=== PATIENT | male | born 1970 | race Caucasian/White ===

== ENCOUNTER 2020-04-04 15:33 | Outpatient (REF) | payer OTHER, SELFPAY | END 2020-04-04 15:34 | disposition home or self-care (01) | LOC: HO.LAB 15:33 | PROVIDERS: PCP Internal Medicine; Visit Provider Internal Medicine | DX: Z20.828 Contact with and (suspected) exposure to other viral communicable diseases (principal) | CPT/HCPCS: C9803; U0003 ==

== ENCOUNTER 2022-04-14 07:25 | Day surgery (SDC) | payer OTHER, SELFPAY ==
--- NOTE | 2022-04-11 10:36 | HO.ANESPROP2 ---
Documented by User: Becky Infante NP 04/11/22 10:37 HPI - Anesthesia Eval Consult details Narrative: 51yo M for Colonoscopy [facility] Past Medical History Medical History Anxiety Elevated cholesterol Surgical History Surgical History Hx of adenoidectomy Social History Social History Patient Tobacco Use Status: Never used Tobacco Use of substances other than those prescribed or required for medical reasons: No Are you DNR?: No Advance Directives: No Advance Directives Information Provided: Yes Meds Allergies Allergy/AdvReac Type Severity Reaction Status Date / Time No Known Allergies Allergy Verified 04/14/22 07:47 Home Medications Medication Instructions Recorded Confirmed Last Taken Type sertraline 50 mg tablet 1 tab PO DAILY 04/11/22 04/11/22 Unknown History simvastatin 10 mg tablet 1 tab PO BEDTIME 04/11/22 04/11/22 Unknown History Exam Exam Date and Time: April 11, 2022 1036 Assessment and Plan Assessment Anesthesia Assessment: Chart Reviewed Documented by User: Usha Mariano MD 04/14/22 08:21 [facility] Past Medical History Medical History Anxiety Elevated cholesterol Family History Family history of problems with anesthesia: No Surgical History Surgical History Hx of adenoidectomy History of Problems with Anesthesia: No Social History Social History Patient Tobacco Use Status: Never used Tobacco Use of substances other than those prescribed or required for medical reasons: No Are you DNR?: No Advance Directives: No Advance Directives Information Provided: Yes Meds Allergies Allergy/AdvReac Type Severity Reaction Status Date / Time No Known Allergies Allergy Verified 04/14/22 07:47 Home Medications Medication Instructions Recorded Confirmed Last Taken Type sertraline 50 mg tablet 1 tab PO DAILY 04/11/22 04/11/22 Unknown History simvastatin 10 mg tablet 1 tab PO BEDTIME 04/11/22 04/11/22 Unknown History Exam Height,Weight and Vital Signs: Height 6 ft 4.5 in Weight 94.347 kg Vital Signs Temp Pulse Resp BP Pulse Ox O2 Del Method 04/14/22 07:48 97.1 F 68 15 125/79 98 Room Air Airway Mallampati Class: II TM Dist: >3cm Neck ROM: Full Loose/Missing/Broken Teeth: No (Denies broken or loose teeth) Heart: RRR Lungs: CTAB Assessment and Plan Final Anesthetic Review Family History of Problems with Anesthesia: No History of Problems with Anesthesia: No NPO: Yes ASA Class: II Final Preanesthetic Review: No Changes in Pt Med Stat, Meds/Allgs Chart Reviewed, Consent Obtained/Reviewed and Anes Risks/Benef Reviewed Patient Risk: Low Procedure Risk: Low Assessment/Block/Sedation in SS: Assess/Block/Sedation-SS Anesthetic Plan Anesthetic Plan: MAC: Disposition: Standard PACU
[2022-04-14 07:43] VITALS: BMI 25.0
[2022-04-14 07:48] VITALS: BP 125/79; PULSE 68; RESP 15; TEMP 36.2; O2SAT 98
[2022-04-14] MEDS: Lactated Ringers 1,000 ML 100 ML IVCONT (07:56)
[2022-04-14 09:15] VITALS: BP 95/59; PULSE 63; RESP 16; TEMP 36.4; O2SAT 97
--- NOTE | 2022-04-14 09:17 | P.BOP_ITS ---
Brief Operative Note Date of Service: 04/14/22 Pre-op diagnosis: Screening Post-op diagnosis: other (Diverticulosis) Procedure: Colonoscopy to the cecum Surgeon: Alan Fairchild Anesthesia: MAC Was an Cobol Mainframe Developer used for this Procedure?: No Estimated blood loss (mL): 0 Pathology: none sent Condition: stable Disposition: PACU
[2022-04-14 09:30] VITALS: BP 109/71; PULSE 57; RESP 16; TEMP 36.4; O2SAT 100
--- NOTE | 2022-04-14 09:44 | OP_ITS ---
SURGEON: Alan Fairchild MD INDICATIONS: The patient presents for evaluation of colorectal cancer screening. Full consent was obtained from him for this, including risks of bleeding and perforation. PREOPERATIVE DIAGNOSIS: Colorectal cancer screening. POSTOPERATIVE DIAGNOSIS: PROCEDURE PERFORMED: Colonoscopy to cecum. ESTIMATED BLOOD LOSS: COMPLICATIONS: ANESTHESIA: Medication used; monitored anesthesia care. ASSISTANTS: SPECIMENS: POSTOPERATIVE DIAGNOSES: Colorectal cancer screening, occasional sigmoid diverticulosis, small internal hemorrhoids. DESCRIPTION OF PROCEDURE: The patient was placed in the left lateral decubitus position. The digital rectal exam revealed no abnormalities. The Olympus video-pediatric colonoscope was entered into the rectum and advanced easily to the cecum. Once in the cecum, I did identify normal-appearing cecal pouch with appendiceal orifice and a normal-appearing ileocecal valve. The entire cecum and ileocecal valve appeared normal. The scope was slowly withdrawn assessing all mucosal surfaces carefully. Preparation was excellent. I did not visualize any sign of polyps, colitis, nor angiodysplasia. There were occasional diverticula in the sigmoid colon. In the rectum, the scope was retroflexed visualizing small internal hemorrhoids, but no other pathology. The rectal mucosa appeared normal. The scope was straightened and withdrawn from the patient. He tolerated the procedure well and was returned to recovery area in stable condition. IMPRESSION: 1. Occasional sigmoid diverticulosis. 2. Small internal hemorrhoids. PLAN: Given the negative exam and no family history, I would recommend a followup colonoscopy in 10 years for further screening. He will otherwise see me on a p.r.n. basis. Alan Fairchild MD RMW/HIMANSHUL / [phone]
== END 2022-04-14 10:14 | disposition home or self-care (01) ==
PROVIDERS: PCP Internal Medicine; Visit Provider Internal Medicine
PROC: 0DJD8ZZ Inspection of Lower Intestinal Tract, Via Natural or Artificial Opening Endoscopic (ICD-10-PCS; CPT 45378; principal; 2022-04-14 08:30)
DX: Z12.11 Encounter for screening for malignant neoplasm of colon (principal); K57.30 Diverticulosis of large intestine without perforation or abscess without bleeding; K64.8 Other hemorrhoids; E78.5 Hyperlipidemia, unspecified; F41.1 Generalized anxiety disorder; Z79.899 Other long term (current) drug therapy
CPT/HCPCS: 45378

== ENCOUNTER 2022-05-29 11:44 | Emergency (ER) | payer OTHER, SELFPAY ==
--- NOTE | ~2022-05-29 | XR_ITS ---
EXAMINATION: LEFT HAND/WRIST CLINICAL INFORMATION: Fall, pain. COMPARISON: None TECHNIQUE: 4 views. FINDINGS: There is an impacted transverse fracture distal radius with dorsal angulation and mild soft tissue swelling. No additional fracture seen. XR/XR hand wrist LT IMPRESSION: Impacted Colles fracture distal radius with mild dorsal angulation and soft tissue swelling.
--- NOTE | 2022-05-29 12:12 | ED.FALL ---
HPI - Fall General Chief Complaint: Extremity Problem Stated Complaint: fall 05/29/22 L wrist inj Time Seen by Provider: 05/29/22 12:54 Source: patient Mode of arrival: ambulatory Limitations: no limitations History of Present Illness HPI Narrative: 51-year-old male healthy here with complaints of left hand and wrist pain after a fall on the ice which occurred just prior to arrival. No head strike or loss of consciousness. Related Data Home Medications Medication Instructions Recorded Confirmed sertraline 50 mg tablet 1 tab PO DAILY 04/11/22 04/11/22 simvastatin 10 mg tablet 1 tab PO BEDTIME 04/11/22 04/11/22 Previous Rx's Medication Instructions Recorded ibuprofen 800 mg tablet 800 mg PO Q8H PRN pain #30 tabs 05/29/22 oxycodone 5 mg tablet 5 mg PO Q8H PRN pain #8 tabs 05/29/22 Allergies Allergy/AdvReac Type Severity Reaction Status Date / Time No Known Allergies Allergy Verified 04/14/22 07:47 Review of Systems Review of Systems: Yes all other systems are reviewed and are negative Constitutional: Constitutional: Reports no additional constitutional complaints, Denies body ache(s), Denies chills, Denies fever(s), Denies headache(s) and Denies weakness Eyes: Eyes: Reports no additional eye complaints and Denies change in vision ENT: Reports system reviewed and no additional complaints, except as documented, Denies dizziness, Denies headache(s), Denies nasal congestion, Denies nasal discharge and Denies neck pain Cardiovascular: Cardiovascular: Reports no additional cardiovascular complaints, Denies chest pain, Denies leg edema and Denies dyspnea Respiratory: Respiratory: Reports no additional respiratory complaints, Denies cough and Denies dyspnea Gastrointestinal: Gastrointestinal: Reports no additional gastrointestinal complaints, Denies abdominal pain, Denies diarrhea, Denies nausea and Denies vomiting Genitourinary: Genitourinary: Denies urinary incontinence Musculoskeletal: Musculoskeletal: Reports no additional musculoskeletal complaints, Denies back pain, Reports arthralgias, Reports joint swelling, Reports limited range of motion, Denies neck pain, Denies numbness and Denies tingling Integumentary/Breasts: Skin/Breast: Reports system reviewed and no additional complaints, except as docu and Denies rash Neurologic: Reports system reviewed and no additional complaints, except as documented, Denies dizziness, Denies headache(s), Denies numbness, Denies tingling and Denies weakness [facility] Past Medical History Attestation statement: The following information was validated with the patient. Source: old records reviewed and nursing notes reviewed Medical History Anxiety Elevated cholesterol Surgical History Hx of adenoidectomy Social History Social History Patient Tobacco Use Status: Never used Tobacco Advance Directives: No Advance Directives Information Provided: Yes Physical Exam Vital Signs: Vital Signs: Last Vital Signs Temp 97.2 F 05/29/22 12:13 Pulse 59 05/29/22 12:13 Resp 18 05/29/22 12:13 BP 129/77 05/29/22 12:13 Pulse Ox 99 05/29/22 12:13 O2 Del Method 05/29/22 12:13 BMI result Body Mass Index 26.5 Const: General: cooperative, healthy appearing, comfortable and no acute distress Orientation/consciousness: patient oriented x3 Limitations: no limitations HEENT: Head: Yes normal to inspection Ears: hearing grossly normal bilaterally Eyes: General: appearance normal, both eyes and all related structures Neck: Neck: Yes normal visual inspection Resp: Effort & Inspection: normal respiratory effort Cardio: Peripheral pulses: Peripheral pulses 2+ throughout Back/Spine/Pelvis: Thoracic/Lumbar Spine: thoracic and lumbar spine normal to inspection Skin: General skin exam: no rashes or lesions noted Neuro: General: patient oriented x3 Cognition (Neuro): normal cognition Gait exam (Neuro): Normal gait present Extrem: Other: Over the left wrist over the distal dorsal aspect there is swelling and tenderness. Patient is able to flex and extend the wrist. He does have pain with doing so. Neurovascularly intact distally. Palpable radial and ulnar pulses palpated Course Course Course Narrative: This is rapid medical exam. Deferred additional HPI, ROS, PE to primary provider. 51-year-old male healthy here with complaints of left hand and wrist pain after a fall on the ice which occurred just prior to arrival. No head strike or loss of consciousness. Patient with pain and swelling at the dorsal aspect of the left hand at the base. Will check x-rays. Patient [id number]. VSS Reevaluation(s) Reevaluation #1: 1315-x-ray of the left wrist shows a impacted distal radial fracture. Patient placed in sugar-tong splint and given sling for home. Reviewed rice. Reviewed orthopedic follow-up. Reviewed worrisome signs and symptoms of when to return to the emergency room. Comfortable plan for discharge home. Procedures Orthopedic Splinting/Casting Injury #1: Side: left Upper Extremity Injury Location: wrist Upper Extremity Immobilizer: sling/shoulder immobilizer and sugar tong splint Medical Decision Making Medical Decision Making MDM Narrative: 51-year-old male with mechanical fall here with left wrist pain and swelling with concern for fracture. Will check x-ray Differential Diagnosis Differential Diagnoses: The differential diagnosis associated with the presentation includes Fracture, contusion, sprain Independent Interpretation I performed an independent interpretation of an: Plain X-Ray Interpretation: Independent Reviewed x-ray which shows left impacted distal radial fracture Radiology Impression Discussion of test interpretation with radiology: I have reviewed the radiologist's reading. Radiologist Impression: Impacted Colles fracture distal radius with mild dorsal angulation and soft tissue swelling. Discharge Plan Discharge Clinical Impression: Distal radial fracture Patient Disposition: Home, Self-Care Instructions: Wrist Fracture in Adults (ED), Splint Care (ED) Additional Instructions: Rest, elevate Call orthopedics for follow-up Prescriptions: New ibuprofen 800 mg tablet 800 mg PO Q8H PRN (Reason: pain) Qty: 30 0RF oxycodone 5 mg tablet 5 mg PO Q8H PRN (Reason: pain) Qty: 8 0RF Rx Instructions: Partial Fill upon patient request. No Action simvastatin 10 mg tablet 1 tab PO BEDTIME sertraline 50 mg tablet 1 tab PO DAILY Referrals: [facility] [place] [facility] [Provider Group] - 1 week Interventions: ED Discharge Assessment Last Done: 05/29/22 13:13
[2022-05-29 12:13] VITALS: BP 129/77; PULSE 59; RESP 18; TEMP 36.2; O2SAT 99; BMI 26.5
== END 2022-05-29 13:30 | disposition home or self-care (01) ==
PROVIDERS: Emergency Provider Student in an Organized Health Care Education/Training Program; PCP Internal Medicine
DX: S52.532A Colles' fracture of left radius, initial encounter for closed fracture (principal); W00.0XXA Fall on same level due to ice and snow, initial encounter; Y93.9 Activity, unspecified; Y92.9 Unspecified place or not applicable; Y99.9 Unspecified external cause status
CPT/HCPCS: 29125; 73110; 73130; 99282; 99284

== ENCOUNTER 2022-06-04 12:31 | Outpatient (REF) | payer OTHER, SELFPAY ==
--- NOTE | ~2022-06-04 | XR_ITS ---
EXAMINATION: XR WRIST, LEFT CLINICAL INFORMATION: Pain in left wrist COMPARISON: 05/29/2022 TECHNIQUE: PA, lateral, and oblique views of the left wrist. FINDINGS: Again seen is an impacted transverse fracture of the distal radius with mild dorsal displacement and angulation. The appearances similar to the prior study 05/29/2022. No additional fracture seen. XR/XR wrist LT min 3V IMPRESSION: Unchanged distal radius fracture.
== END 2022-06-04 12:32 | disposition home or self-care (01) ==
LOC: HO.HOSX 12:31
PROVIDERS: Visit Provider Physician Assistant
DX: S52.502A Unspecified fracture of the lower end of left radius, initial encounter for closed fracture (principal)
CPT/HCPCS: 73110

== ENCOUNTER 2022-06-05 12:54 | Day surgery (SDC) | payer OTHER, SELFPAY ==
[2022-06-05] VITALS (8 sets, daily range): BP systolic 112–135; BP diastolic 65–77; PULSE 54–69; RESP 15–16; TEMP 36.1–36.6; O2SAT 96–100; BMI 26.2
--- NOTE | ~2022-06-05 | FL_ITS ---
EXAMINATION: XR FLUOROSCOPY WITH IMAGES CLINICAL INFORMATION: Distal radial fracture. Reduction. COMPARISON: Radiographs left wrist 06/04/2022 TECHNIQUE: Fluoroscopy Supervised By: Dr. Sushma Brush. Fluoroscopy Time: 23 seconds. Cumulative Dose: 0.781 mGy. DAP: 0.0472 Gycm2. Images: 3. FINDINGS: Transverse fracture distal radius is reduced with volar side plate and screws. Hardware is intact. Fracture fragments are in near-anatomic alignment. No dislocation. FL/FL guidance in OR IMPRESSION: Status post reduction distal radial fracture. Hardware intact. Near-anatomic alignment.
--- NOTE | 2022-06-05 13:20 | P.CONAN_ITS ---
HPI - Anesthesia Eval Consult details Narrative: 51 year old male for orif left arm PMFSH Active Problems Active Problems: All Active Problems (Updated 06/04/22 @ 16:08 by Jason Lopez) Distal radius fracture, left (Acute) Colles' fracture of left radius (Acute) Past Medical History Medical History Anxiety Elevated cholesterol Family History Family history of problems with anesthesia: No Surgical History Surgical History (Updated 06/05/22 @ 13:21 by Jud Graves RN) Hx of adenoidectomy Hx of colonoscopy History of Problems with Anesthesia: No Social History Social History (Updated 06/04/22 @ 15:12 by Yaron Caballero) Patient Tobacco Use Status: Never used Tobacco Use of substances other than those prescribed or required for medical reasons: No Are you DNR?: No Advance Directives: No Advance Directives Information Provided: Yes Current occupational status: employed 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 Meds Allergies Allergy/AdvReac Type Severity Reaction Status Date / Time No Known Allergies Allergy Verified 06/05/22 13:21 Active Medications: Current Medications Cefazolin Sodium/Dextrose (Ancef) 2 gm in 50 mls @ 100 mls/hr IV PREOP ONE Stop: 06/05/22 13:25 Home Medications Medication Instructions Recorded Confirmed Last Taken Type sertraline 50 mg tablet 1 tab PO DAILY 04/11/22 06/05/22 Unknown History simvastatin 10 mg tablet 1 tab PO BEDTIME 04/11/22 06/05/22 Unknown History Exam Exam Date and Time: June 05, 2022 1320 Height,Weight and Vital Signs: Height 6 ft 4 in Weight 97.522 kg Last Vital Signs Temp 97.2 F 06/05/22 13:13 Pulse 54 06/05/22 13:13 Resp 15 06/05/22 13:13 BP 135/77 06/05/22 13:13 Pulse Ox 98 06/05/22 13:13 O2 Del Method 06/05/22 13:13 Assessment and Plan Assessment Anesthesia Assessment: Anesthesia Plan Discussed Final Anesthetic Review Family History of Problems with Anesthesia: No History of Problems with Anesthesia: No ASA Class: II Final Preanesthetic Review: No Changes in Pt Med Stat, Meds/Allgs Chart Reviewed, Consent Obtained/Reviewed and Anes Risks/Benef Reviewed Patient Risk: Low Anesthetic Plan Anesthetic Plan: GA, Regional Block and Agree w/ Assess. and Plan Disposition: Standard PACU
[2022-06-05] MEDS: Lactated Ringers 1,000 ML 80 ML IVCONT (13:43)
--- NOTE | 2022-06-05 14:17 | MHC.SHP ---
Pre-Procedural Eval Section A Date of Service: 06/05/22 The patient is an INPATIENT: No Changes since office visit: No Cold of Flu in the past 2 weeks, No New Medical Problems, No Changes in Medication and No Patient answered all questions The History & Physical has been completed within 30 days and I have reviewed it.: Yes Section B Chief Complaint: Colles' fracture of left radius, initial encounter Allergies: Allergies Allergy/AdvReac Type Severity Reaction Status Date / Time No Known Allergies Allergy Verified 06/05/22 13:21 Plan I have reviewed the history and physical and performed a pertinent physical examination on my patient. No changes have occurred unless specified. Time Spent With Patient Time: Total time managing care of this patient today ____ minutes.
--- NOTE | 2022-06-05 14:18 | P.OP_ITS ---
Operative Note Operative Note Date of Service: 06/05/22 Narrative: Operative Note Narrative: Preop diagnosis: 1. Left Distal radius fracture Postop diagnosis: Same Procedure: 1. Left Distal radius fracture open reduction internal fixation Surgeon: Sushma Brush MD Anesthesia: General anesthesia plus regional block Findings: left distal radius fracture Implants: A 3 hole Accu Med volar locking plate, with 5 X 2.3 mm locking pegs/screws, and 3 3.5 mm cortical screws Tourniquet time: 53 minutes EBL: 5.0 ml Specimen: None Drains: None Complications: None Disposition: Brought to the recovery room in stable condition Plan: Follow-up in 10-14 days for wound check, suture removal and postop radiographs The patient will be placed in a volar wrist splint. Encouraged no lifting of anything heavier than a cell phone. Please encourage active and passive range of motion of the digits. Follow-up at 4-5 weeks postop for repeat radiographs. Indications: The patient is a 51 year old man with a left distal radius fracture . The risks and benefits of operative treatment, including but not limited to risk of damage to blood vessels, nerves, tendons, infection, recurrence, persistent pain or numbness, incomplete resolution of preoperative symptoms, or need for further surgery were discussed with the patient and they wished to proceed with surgery. Procedure: Once consent was obtained patient was brought back to the operating suite and placed in the operating table in a supine position. A regional block was performed by the anesthesia team. Perioperative antibiotics and anesthesia was administered by the anesthesia team. A tourniquet was applied to the proximal aspect of the left upper extremity and the limb was prepped and draped in a standard surgical fashion. The limb was elevated exsanguinated with Esmarch bandage and the tourniquet inflated to 250 mm of mercury for a total tourniquet time of 53 minutes. The FluoroScan was used throughout the case to assess our reduction, and facilitate implant placement. A gentle closed reduction was 1st performed on the patient's left distal radius fracture. Was assessed radiographically before proceeding with the reduction internal fixation. I then made an 8 cm longitudinal incision over the distal aspect of the flexor carpi radialis tendon. The incision was made through the skin to the subcutaneous tissue using a 15. Blade. Then carefully dissected down to flexor carpi radialis tendon she tenotomy scissors. The FCR tendon sheath was then incised longitudinally using tenotomy scissors under direct visualization. The FCR tendon was then retracted ulnarly. I then made a longitudinal incision in the volar forearm fascia through the floor of FCR tendon sheath using tenotomy scissors under direct visualization. I identified the interval between the radial artery and the flexor tendons. This interval was developed further with my index finger, releasing some of the muscular fibers of the flexor pollicis longus. A dull weatlander retractor was then placed. I then created an ulnarly based flap of the pronator quadratus by releasing the radial and distal edges using a 15. Blade. A Alex elevator was used to elevate the pronator quadratus from the volar surface of the distal radius. This then revealed to us our distal radius fracture. An open reduction was then performed on our distal radius fracture. I then placed a short standard 3 hole Accu Med volar locking plate on the volar surface of the distal radius. I placed a single K-wire through the distal aspect of the plate and into the distal radius. This was assessed using fluor oscopic images. I was satisfied with the placement of our plate. I then placed 5x 2.3 mm locking screws/pegs in the distal aspect of the plate and distal radius by 1st drilling bicortically with a 1.8 mm drill bit, measuring with a depth gauge, and placing the appropriate length locking screws/pegs. The placement of our plate and screws was then assessed again using fluoroscopic images. The once satisfied with the placement of the volar locking plate and screws on the distal aspect of the distal radius, the plate was then reduced to the shaft of the radius. I then placed 3 3.5 mm cortical screws to the proximal aspect of the plate and into the shaft of the radius. This was done by 1st drilling bicortically with a 2.8 mm drill bit, measuring with a depth gauge, and placing the appropriate length screw. Final radiographs were then obtained. The DRUJ was assessed and found to be stable on exam. I was satisfied with our reduction and placement of all implants. At this point the wound was irrigated with normal saline. The pronator quadratus was reduced back over the volar locking plate using some 3-0 Vicryl suture material. The tourniquet was then deflated and hemostasis was obtained with a brief period of local pressure and bipolar monopolar electrocautery. The subcutaneous layer was then reapproximated using some 4-0 Vicryl suture, and the skin edges were reapproximated using some 5 0 Prolene suture. The wound was then infiltrated with some 0.5% plain ropivacaine postop pain control. A sterile dressing and a short dorsal splint allowing for active flexion and extension of the digits was applied. The patient appears to have tolerated the procedure well and with no complications. All digits were well vascularized conclusion of the case.
== END 2022-06-05 17:16 ==
LOC: HO.SSS 12:55
PROVIDERS: PCP Internal Medicine; Visit Provider Orthopaedic Surgery
PROC: (CPT 25607; principal; 2022-06-05 14:30)
DX: S52.532A Colles' fracture of left radius, initial encounter for closed fracture (principal); W03.XXXA Other fall on same level due to collision with another person, initial encounter; Y93.21 Activity, ice skating; Y92.330 Ice skating rink (indoor) (outdoor) as the place of occurrence of the external cause; Y99.8 Other external cause status; E78.00 Pure hypercholesterolemia, unspecified; F41.1 Generalized anxiety disorder; Z79.899 Other long term (current) drug therapy
CPT/HCPCS: 25607; C1713; C1769; J0690; J2250; J2370; J2405; J2795; J3010

== ENCOUNTER 2022-06-13 09:23 | Outpatient (REF) | payer OTHER, SELFPAY ==
--- NOTE | ~2022-06-13 | XR_ITS ---
EXAMINATION: XR WRIST, LEFT CLINICAL INFORMATION: Pain. COMPARISON: Radiograph of the left wrist 06/04/2022. TECHNIQUE: PA, lateral, and oblique views of the left wrist. FINDINGS: Interval placement of fixation plate with traversing screws along the distal radius with improved near anatomic alignment of a comminuted distal radial fracture. No interval injuries. No evidence of hardware failure. Mild degenerative arthritis of the first carpometacarpal joint and radiocarpal articulation. No unexpected foreign bodies. XR/XR wrist LT min 3V IMPRESSION: Status post ORIF of a distal radial fracture with improved near anatomic alignment. No evidence of hardware failure. No interval injury.
== END 2022-06-13 09:24 | disposition home or self-care (01) ==
LOC: HO.HOSX 09:23
PROVIDERS: Visit Provider Physician Assistant
DX: S52.532D Colles' fracture of left radius, subsequent encounter for closed fracture with routine healing (principal)
CPT/HCPCS: 73110

== ENCOUNTER 2022-07-10 12:27 | Outpatient (REF) | payer OTHER, SELFPAY ==
--- NOTE | ~2022-07-10 | XR_ITS ---
EXAMINATION: XR WRIST, LEFT CLINICAL INFORMATION: Pain COMPARISON: Previous x-ray most recent June 2022 TECHNIQUE: PA, lateral, and oblique views of the left wrist. FINDINGS: The nondisplaced transverse fracture of the distal radius appears unchanged. There is orthopedic hardware in the distal radius with plate and screws that appears unchanged. No other fracture. Normal joint spaces. Normal soft tissues. XR/XR wrist LT min 3V IMPRESSION: ORIF of left distal radius fracture. No change from recent exam.
== END 2022-07-10 12:28 | disposition home or self-care (01) ==
LOC: HO.HOSX 12:27
PROVIDERS: Visit Provider Physician Assistant
DX: S52.532D Colles' fracture of left radius, subsequent encounter for closed fracture with routine healing (principal)
CPT/HCPCS: 73110

== ENCOUNTER 2022-08-19 12:43 | Outpatient (REF) | payer OTHER, SELFPAY ==
--- NOTE | ~2022-08-19 | XR_ITS ---
EXAMINATION: XR WRIST, LEFT CLINICAL INFORMATION: Pain left wrist COMPARISON: None available. TECHNIQUE: PA, lateral, and oblique views of the left wrist. FINDINGS: There is an old healed fracture distal radius stabilized with volar plate and screws. There is no new acute fracture or dislocation. The joint spaces are maintained normal without bony erosive changes. The soft tissues are normal. XR/XR wrist LT min 3V IMPRESSION: Old healed fracture distal radius with volar plate and screws. No new acute fracture or dislocation seen.
== END 2022-08-19 12:44 | disposition home or self-care (01) ==
LOC: HO.HOSX 12:43
PROVIDERS: Visit Provider Orthopaedic Surgery
DX: M25.532 Pain in left wrist (principal)
CPT/HCPCS: 73110

== ENCOUNTER → 2022-08-20 09:32 | Outpatient (BNVA) | payer OTHER, SELFPAY | PROVIDERS: PCP Internal Medicine; Visit Provider Orthopaedic Surgery | DX: Z13.89 Encounter for screening for other disorder (principal) ==

== ENCOUNTER 2022-10-10 10:47 | Outpatient (REF) | payer OTHER, SELFPAY ==
[2022-10-10 13:13] LABS: MANUAL DIFF FLAG NO
[2022-10-10 13:17] LABS: Basophils Absolute Auto 0.1 X10*3/uL (0.0-0.2); Eosinophils Absolute Auto 0.2 X10*3/uL (0.0-0.4); Hematocrit 39.7 % (42.0-52.0); Hemoglobin 13.1 g/dl (14.0-18.0); Imm Gran Abs Auto 0.02 X10*3/uL (0.00-0.03); Imm Gran Pct Auto 0.4 % (0.0-0.4); Lymphocytes Absolute Auto 1.6 X10*3/uL (1.2-4.9); Lymphocytes Percent Auto 31.1 % (20-40); Mean Corpuscular Hemoglobin 27.9 pg (27.0-33.0); Mean Corpuscular Volume 84.6 fL (80.0-98.0); Mean Platelet Volume 9.6 fL (9.4-12.4); Monocytes Absolute Auto 0.5 X10*3/uL (0.1-1.2); Monocytes Percent Auto 9.7 % (2-11); Neutrophils Absolute Auto 2.7 x10*3/uL (2.0-8.3); Neutrophils Percent Auto 53.8 % (45-73); Platelet Count 233 X10*3/uL (160-400); Red Blood Count 4.69 X10*6/uL (4.60-5.80); White Blood Count 5.1 X10*3/uL (4.8-10.8)
[2022-10-10 13:45] LABS: Alanine Aminotransferase 20 U/L (0-40); Albumin Level 4.3 g/dL (3.5-5.0); Alkaline Phosphatase 57 U/L (39-117); Anion Gap 10 (12-20); Aspartate Amino Transferase 24 U/L (5-37); Blood Urea Nitrogen 18 mg/dL (9-16); Calcium 9.4 mg/dL (8.4-10.2); Carbon Dioxide 29 mmol/L (22-29); Chloride 105 mmol/L (96-108); Cholesterol 192 mg/dL; Estimated Glomerular Filt Rate > 60; Glucose Fasting 82 mg/dL (60-99); HDL Cholesterol 62 mg/dL; LDL Cholesterol Calculated 118 mg/dl; Potassium 4.3 mmol/L (3.3-5.1); Sodium 140 mmol/L (135-145); Total Protein 6.9 g/dL (6.5-8.0); Triglycerides 64 mg/dL
== END 2022-10-10 10:48 | disposition home or self-care (01) ==
LOC: HO.10HDL 10:47
PROVIDERS: Visit Provider Internal Medicine
DX: Z00.00 Encounter for general adult medical examination without abnormal findings (principal); Z12.5 Encounter for screening for malignant neoplasm of prostate
CPT/HCPCS: 36415; 80053; 80061; 84153; 85025

== ENCOUNTER 2023-10-16 10:26 | Outpatient (REF) | payer OTHER, SELFPAY ==
[2023-10-16 10:56] LABS: MANUAL DIFF FLAG NO
[2023-10-16 11:14] LABS: Basophils Absolute Auto 0.1 X10*3/uL (0.0-0.2); Basophils Percent Auto 0.8 % (0-2); Eosinophils Absolute Auto 0.1 X10*3/uL (0.0-0.4); Eosinophils Percent Auto 2.1 % (0-4); Hematocrit 40.9 % (42.0-52.0); Hemoglobin 13.5 g/dl (14.0-18.0); Imm Gran Abs Auto 0.01 X10*3/uL (0.00-0.03); Imm Gran Pct Auto 0.2 % (0.0-0.4); Lymphocytes Absolute Auto 1.6 X10*3/uL (1.2-4.9); Lymphocytes Percent Auto 25.8 % (20-40); Mean Corpuscular Hemoglobin 28.1 pg (27.0-33.0); Mean Platelet Volume 9.1 fL (9.4-12.4); Monocytes Absolute Auto 0.5 X10*3/uL (0.1-1.2); Monocytes Percent Auto 8.4 % (2-11); Neutrophils Percent Auto 62.7 % (45-73); Platelet Count 209 X10*3/uL (160-400); Red Blood Count 4.81 X10*6/uL (4.60-5.80); Red Cell Distribution Width 12.7 % (11.0-16.0); White Blood Count 6.3 X10*3/uL (4.8-10.8)
[2023-10-16 11:49] LABS: Alanine Aminotransferase 12 U/L (0-40); Albumin Level 4.4 g/dL (3.5-5.0); Alkaline Phosphatase 47 U/L (39-117); Anion Gap 14 (12-20); Aspartate Amino Transferase 21 U/L (5-37); Bilirubin Total 1.6 mg/dL (0.0-1.0); Blood Urea Nitrogen 24 mg/dL (9-16); Calcium 9.8 mg/dL (8.4-10.2); Carbon Dioxide 26 mmol/L (22-29); Chloride 105 mmol/L (96-108); Cholesterol 184 mg/dL (<200); Estimated Glomerular Filt Rate > 60; Glucose Fasting 84 mg/dL (60-99); HDL Cholesterol 69 mg/dL (>40); LDL Cholesterol Calculated 101 mg/dL (<100); Potassium 4.2 mmol/L (3.3-5.1); Sodium 141 mmol/L (135-145); Total Protein 7.4 g/dL (6.5-8.0); Triglycerides 70 mg/dL (<150)
[2023-10-16 12:12] LABS: Prostate Specific Antigen Scr 0.39 ng/mL (<0.05-4.0)
== END 2023-10-16 10:27 | disposition home or self-care (01) ==
LOC: HO.10HDL 10:26
PROVIDERS: Visit Provider Internal Medicine
DX: E78.00 Pure hypercholesterolemia, unspecified (principal); Z12.5 Encounter for screening for malignant neoplasm of prostate; Z80.42 Family history of malignant neoplasm of prostate
CPT/HCPCS: 36415; 80053; 80061; 84153; 85025

== ENCOUNTER → 2023-10-27 13:40 | Outpatient (RCR) | payer OTHER, SELFPAY ==
--- NOTE | 2022-07-18 11:02 | MHC.OT.EP ---
[address] [phone] Occupational Therapy Plan of Care Date of Evaluation: 07/18/22 Diagnosis: Left Colles Fx Pain Location: Pain free at rest Mild pain w/ light use Pain Score: 0 Pain Scale Used: Numeric (0 - 10) Aggravating Factors: General use, has been avoiding heavy use Alleviating Factors: None used Assessment: 51 yo right hand dominant male presents about 6 weeks s/p ORIF of left distal radius fracture. He is wearing prefab orthosis out of the house/driving, but otherwise has been out of the splint for light activities and sleeping. On assessment, his primary limitation is supination, also w/ decreased flex and extension. 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 Otherwise edema is minimal and pain is low. He is very motivated and I anticipate he will progress well through therapy program. Frequency and Duration: The patient will be seen 1-2x/wk for 4 weeks Short Term Goals: Gross grasp 45lb Pain free wrist w/ ADL and light IADL Forearm sup 55 Wrist flex 45 Wrist ext 50 Snf Goals: Gross grasp 60lb Forearm sup 70 Wrist flex 60 Wrist ext 60 Pt to report ease w/ moderate house work, walking dog, etc Pt to return to light sports activity (tossing baseball w/ son) Treatment Plan: Therapeutic Exercise Therapeutic Activity Home Exercise Program Patient Education Edema Control ADL Training Paraffin Fluidotherapy MHP Cold Packs Joint Mobilization Soft Tissue Mobilization Kinesiotaping Electronically Signed By: Raina Schreiber OTR/L CHT Please Sign and return to therapist. Thank you once again for your referral.
--- NOTE | 2022-08-22 07:44 | MHC.OT.DC ---
[address] [phone] F: [phone] Occupational Therapy Discharge Note Patient Name: Enrique Grover Provider: Jose A Rogers Diagnosis: Left Colles Fx Date of Surgery: 06/05/22 Date of Evaluation: 07/18/22 Date of Discharge: 08/20/22 Treatments to Date: 4 Discharge Status: Achieved Goals Improved Function Independent with HEP Discharge Summary: Enrique is about 11 weeks post-op left distal radius fx w/ ORIF. He continues to progress w/ range and strength, good follow through w/ HEP. No significant pain or functional limitations, limiting full activity still (not playing pick-up basketball). He feels confident in home program and self management, will d/c OT services at this time Electronically Signed By: Raina Schreiber OTR/Duglas CHT Reviewed/agree with student documentation: Therapist: Please Sign and return to therapist, thank you for your referral.
== END | disposition home or self-care (01) ==
LOC: HO.OT 07-18 09:45
PROVIDERS: Visit Provider Physician Assistant
DX: S52.532D Colles' fracture of left radius, subsequent encounter for closed fracture with routine healing (principal)
CPT/HCPCS: 97110; 97140; 97165; 97530

== ENCOUNTER 2024-10-14 11:25 | Outpatient (AMB) | payer OTHER, SELFPAY ==
--- NOTE | 2024-10-14 11:26 | A.OFFPC_ITS ---
Vital Signs 10/14/24 11:32 Height 6 ft 4.25 in Weight 218 lb BMI 26.4 BP 120/74 Blood Pressure Location Lt brachial Position Sitting Respiration 16 Pulse 71 Pulse Source Pulse Oximeter Temp 98.6 F Temp Source Temporal Artery Scan Pulse Oximetry (%) 97 Oxygen Delivery Method Room Air Intake Visit Reasons: Routine Intake Note: patient here for routine follow up Stock Speculator Required: No Allergies No Known Allergies Allergy (Verified 10/14/24 11:31) Tobacco use date assessed: 10/14/24 Dental Screening Dental Screen Date: 10/14/24 Did you have a dental visit in the last 12 months?: Yes Did you have a dental problem in the last 6 months where you did not have access to dental care?: No Was dental information given to patient?: Patient has dentist HPI HPI Comments History of Present Illness Details The patient is a 54 year old male with past medical history of hyperlipidemia, depression presenting for follow up. Last seen by pcp in October 18 Hyperlipidemia stable on meds BH: Anxiety/depression: interested in increasing sertraline Colonoscopy 2021- year repeat ROS see HPI PHYSICAL EXAM: GENERAL: Alert and oriented x 3. NAD EYES: EOMI. Anicteric. HENT: Moist mucous membranes. No scleral icterus. No cervical lymphadenopathy. LUNGS: Clear to auscultation bilaterally. CARDIOVASCULAR: Regular rate and rhythm. No murmur. No JVD. ABDOMEN: Soft, non-tender +bs EXTREMITIES: No edema. Non-tender. SKIN: No rashes or lesions. Warm. NEUROLOGIC: No focal neurological deficits. CN II-XII grossly intact PSYCHIATRIC: Cooperative. 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 Current occupational exposures/hazards: No Cognitive needs: No Hearing needs: No Vision needs: Yes Physical exam (Primary Care) Vital Signs: Last Vital Signs Temp 98.6 F 10/14/24 11:32 Pulse 71 10/14/24 11:32 Resp 16 10/14/24 11:32 BP 120/74 10/14/24 11:32 Pulse Ox 97 10/14/24 11:32 Oxygen Delivery Method Room Air 10/14/24 11:32 BMI result Body Mass Index 26.4 Tobacco/Smoking Status: Tobacco use Status Tobacco use date assessed 10/14/24 10/14/24 11:33 Patient Tobacco Use Status Never used Tobacco 10/14/24 11:29 e-Cigarette/Vaping Use Never Used 10/14/24 11:33 Coding Level of Care Code New Pt Level 4 (08258) Complex EM visit Add On G2211 Diagnoses Elevated cholesterol E78.00 Apnea R06.81 Snoring R06.83 Anemia, unspecified type D64.9 Anemia type: unspecified type Anxiety F41.9 Assessment & Plan Assessment & Plan (1) Elevated cholesterol: Code(s): E78.00 - Pure hypercholesterolemia, unspecified Category: Medical (2) Apnea: Code(s): R06.81 - Apnea, not elsewhere classified Category: Medical (3) Snoring: Code(s): R06.83 - Snoring Category: Medical (4) Anemia: Code(s): D64.9 - Anemia, unspecified Category: Medical Qualifiers: Anemia type: unspecified type Qualified Code(s): D64.9 - Anemia, unspecified (5) Anxiety: Code(s): F41.9 - Anxiety disorder, unspecified Category: Medical Plan 54 y/o to establish care past medical, surgical, social reviewed HLD-stable apnea, snoring-testing, consult ordered Orders: Orders Comprehensive Met. Panel Today D64.9 - Anemia, unspecified, E78.00 - Pure hypercholesterolemia, unspecified, F41.9 - Anxiety disorder, unspecified, R06.81 - Apnea, not elsewhere classified TSH reflex Free T4 Today D64.9 - Anemia, unspecified, E78.00 - Pure hyperc holesterolemia, unspecified, F41.9 - Anxiety disorder, unspecified, R06.81 - Apnea, not elsewhere classified RT home sleep study Today R06.81 - Apnea, not elsewhere classified, R06.83 - Snoring Complete Blood Count Auto Diff Today D64.9 - Anemia, unspecified, E78.00 - Pure hypercholesterolemia, unspecified, F41.9 - Anxiety disorder, unspecified, R06.81 - Apnea, not elsewhere classified Lipid Panel Today D64.9 - Anemia, unspecified, E78.00 - Pure hypercholesterolemia, unspecified, F41.9 - Anxiety disorder, unspecified, R06.81 - Apnea, not elsewhere classified Vitamin B12 and Folate Today D64.9 - Anemia, unspecified Referrals Sleep Medicine Referral R06.81 - Apnea, not elsewhere classified, R06.83 - Snoring Medications: New sertraline 100 mg PO DAILY 90 tabs 3RF Discontinued ibuprofen Discontinued Reason: Duplicate 800 mg PO Q8H PRN 30 tabs 0RF pain ibuprofen Discontinued Reason: Doctor's Order 600 mg PO Q6-8H PRN 30 tabs 0RF pain
[2024-10-14 11:32] VITALS: BP 120/74; PULSE 71; RESP 16; TEMP 37; O2SAT 97; BMI 26.4
== END 2024-10-14 11:47 | disposition home or self-care (01) ==
LOC: HO.HMCHD 11:26
PROVIDERS: PCP Internal Medicine; Visit Provider Internal Medicine
DX: E78.00 Pure hypercholesterolemia, unspecified (principal); R06.81 Apnea, not elsewhere classified; R06.83 Snoring; D64.9 Anemia, unspecified; F41.9 Anxiety disorder, unspecified

== ENCOUNTER → 2024-10-14 11:25 | Outpatient (BNVA) | payer OTHER, SELFPAY | PROVIDERS: PCP Internal Medicine; Visit Provider Internal Medicine ==

== ENCOUNTER 2024-10-14 11:50 | Outpatient (REF) | payer OTHER, SELFPAY ==
[2024-10-14 13:50] LABS: MANUAL DIFF FLAG NO
[2024-10-14 14:00] LABS: Basophils Absolute Auto 0.1 X10*3/uL (0.0-0.2); Basophils Percent Auto 0.9 % (0-2); Eosinophils Absolute Auto 0.1 X10*3/uL (0.0-0.4); Eosinophils Percent Auto 1.6 % (0-4); Hematocrit 40.5 % (42.0-52.0); Hemoglobin 13.5 g/dl (14.0-18.0); Imm Gran Abs Auto 0.02 X10*3/uL (0.00-0.03); Imm Gran Pct Auto 0.3 % (0.0-0.4); Lymphocytes Absolute Auto 2.2 X10*3/uL (1.2-4.9); Lymphocytes Percent Auto 30.7 % (20-40); Mean Corpuscular HGB Conc 33.3 g/dl (31.0-36.0); Mean Corpuscular Hemoglobin 28.5 pg (27.0-33.0); Mean Corpuscular Volume 85.4 fL (80.0-98.0); Mean Platelet Volume 9.6 fL (9.4-12.4); Monocytes Absolute Auto 0.6 X10*3/uL (0.1-1.2); Monocytes Percent Auto 8.7 % (2-11); Neutrophils Absolute Auto 4.1 x10*3/uL (2.0-8.3); Neutrophils Percent Auto 57.8 % (45-73); Platelet Count 221 X10*3/uL (160-400); Red Blood Count 4.74 X10*6/uL (4.60-5.80); Red Cell Distribution Width 12.7 % (11.0-16.0)
[2024-10-14 14:28] LABS: Alanine Aminotransferase 17 U/L (0-40); Albumin Level 4.5 g/dL (3.5-5.0); Alkaline Phosphatase 49 U/L (39-117); Anion Gap 11 (12-20); Aspartate Amino Transferase 28 U/L (5-37); Bilirubin Total 1.5 mg/dL (0.0-1.0); Blood Urea Nitrogen 21 mg/dL (9-16); Carbon Dioxide 29 mmol/L (22-29); Chloride 105 mmol/L (96-108); Cholesterol 194 mg/dL (<200); Estimated Glomerular Filt Rate > 60; Glucose Random 91 mg/dL (60-115); HDL Cholesterol 71 mg/dL (>40); LDL Cholesterol Calculated 112 mg/dL (<100); Potassium 4.3 mmol/L (3.3-5.1); Sodium 141 mmol/L (135-145); TSH reflex Free T4 7.68 uIU/mL (0.32-4.0); Total Protein 7.5 g/dL (6.5-8.0); Triglycerides 56 mg/dL (<150)
[2024-10-14 14:40] LABS: Folate 13.5 ng/mL (> or = 4.0); Vitamin B12 416 pg/mL (200-900)
[2024-10-14 15:19] LABS: Free T4 (Free Thyroxine) 0.86 ng/dL (0.71-1.85)
== END 2024-10-14 11:51 | disposition home or self-care (01) ==
LOC: HO.10HDL 11:50
PROVIDERS: Visit Provider Internal Medicine
DX: R06.81 Apnea, not elsewhere classified (principal); F41.9 Anxiety disorder, unspecified; E78.00 Pure hypercholesterolemia, unspecified; D64.9 Anemia, unspecified
CPT/HCPCS: 36415; 80053; 80061; 82607; 82746; 84439; 84443; 85025

== ENCOUNTER 2024-12-06 08:51 | Outpatient (AMB) | payer OTHER, SELFPAY ==
[2024-12-06 09:14] VITALS: BP 110/70; PULSE 83; O2SAT 98; BMI 26.9
--- NOTE | 2024-12-06 09:14 | MHC.OFFVIS ---
Vital Signs 12/06/24 09:14 Height 6 ft 4 in Weight 221 lb BMI 26.9 BP 110/70 Blood Pressure Location Lt brachial Position Sitting Pulse 83 Pulse Source Pulse Oximeter Pulse Oximetry (%) 98 Oxygen Delivery Method Room Air Intake Visit Reasons: INP-Apnea Intake Note: Patient presents DIRECTOR OF THERAPY SERVICES Apnea Student Loan Counselor Required: No Accompanied by: Self / Same As Patient Allergies No Known Allergies Allergy (Verified 12/06/24 09:15) HPI Comments Details: 54 year old patient referred for evaluation of LUCILLE by Omayra Kaur his PCP. FH + dad 80 Parkinson, mom 78 breast cancer in remission. Reviewed Labs with patient today TSH is 7.68, denies h/o of hashimotos, auto-immune disease or hypothyroidism. He goes to bed at 11pm wakes up at 6am, with 1-2x bathroom breaks, and feels rested when he is awake. His complaints of him snoring loudly at night, gasping for air, and he has chronic fatigue. He lost about 30lbs, over the span of a 3 month period, his weight fluctuates and he gains weight easily also. He denies bruxism. He denies morning headaches, and GERD. He denies parasomnias. He has RLS, with uncomfortable, jumpy sensation of the feet bilaterally which he notices it as he falls asleep. His mood is irritable, he works with [employer], this can be tasking and takes a toll on his own mental health some days he gets very overwhelmed. He is on 100mg sertraline and this helps. He denies smoking, drinks socially at family events. 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 Current occupational exposures/hazards: No Cognitive needs: No Hearing needs: No Vision needs: Yes Physical Exam Vital Signs: Last Vital Signs Pulse 83 12/06/24 09:14 BP 110/70 12/06/24 09:14 Pulse Ox 98 12/06/24 09:14 Oxygen Delivery Method Room Air 12/06/24 09:14 BMI result Body Mass Index 26.9 Const General: cooperative, comfortable and no acute distress Orientation/consciousness: patient oriented x3 HEENT Face and sinus: Yes face symmetric Teeth and gingiva: other ([place] score is 3) Eyes Pupils: Equal, round and reactive pupils present Neck Neck: Yes full ROM Resp Effort & Inspection: normal respiratory effort and able to speak in complete sentences Neuro General: patient oriented x3 and moves all extremities Cranial nerves: Yes Equal, round and reactive pupils present, Yes Normal facial strength present, Yes Midline tongue present, Yes Ability to bilaterally rotate head present and Yes Ability to bilaterally elevate shoulders present Cognition (Neuro): normal cognition Gait exam (Neuro): Normal gait present Motor exam (neuro): 5/5 motor strength present throughout and Normal motor muscle tone present throughout Deep tendon reflexes (DTR's): Right triceps reflex intensity grade: 2+, Left triceps reflex intensity grade: 2+, Rt Biceps (C5, C6): 2+, Left biceps reflex intensity grade: 2+, Right brachioradialis reflex intensity grade: 2+, Left brachioradialis reflex intensity grade: 2+, Right patellar reflex intensity grade: 2+, Left patellar reflex intensity grade: 2+, Right ankle reflex intensity grade: 2+ and Left ankle reflex intensity grade: 2+ Psych Appearance: grossly normal Affect: normal affect Thought process: Normal thought process present Thought content: Normal thought content present Assessment & Plan Assessment & Plan (1) Excessive daytime sleepiness: Comment: HST Code(s): G47.19 - Other hypersomnia Category: Medical (2) Snoring: Comment: Mouth guard Code(s): R06.83 - Snoring Category: Medical (3) Elevated TSH: Comment: Endocrine referral - hypothyroidism, hashimotos, autoimmune, medication? [place]? Iodine deficient? Code(s): R79.89 - Other specified abnormal findings of blood chemistry Category: Medical (4) Hypothyroidism: Code(s): E03.9 - Hypothyroidism, unspecified Category: Medical Qualifiers: Hypothyroidism type: unspecified Qualified Code(s): E03.9 - Hypothyroidism, unspecified Plan HST to r/o lucille Labs to r/o deficiencies Elevated TSH 7.48, will refer to endocrine for further testing. Hashimotos hypothyroidsim, auto-immune, medication induced? TsH with free t4/ TPO antibodies, Thyroid antiglobulins, vitamin D, magnesium. Orders: Orders Thyroglobulin Antibodies Today E03.9 - Hypothyroidism, unspecified, R79.89 - Other specified abnormal findings of blood chemistry Triiodothyronine T3 Free Today E03.9 - Hypothyroidism, unspecified, R79.89 - Other specified abnormal findings of blood chemistry Triiodothyronine T3 Reverse Today E03.9 - Hypothyroidism, unspecified, R79.89 - Other specified abnormal findings of blood chemistry Ferritin Today G47.19 - Other hypersomnia IRON PROFILE Today G47.19 - Other hypersomnia, G47.9 - Sleep disorder, unspecified, R53.83 - Other fatigue Vitamin D 25-OH Total Today G47.19 - Other hypersomnia Methylmalonic Acid Today G47.19 - Other hypersomnia, G47.9 - Sleep disorder, unspecified, R53.83 - Other fatigue Homocysteine Today G47.19 - Other hypersomnia, G47.9 - Sleep disorder, unspecified, R53.83 - Other fatigue TSH reflex Free T4 1 Week E03.9 - Hypothyroidism, unspecified, R79.89 - Other specified abnormal findings of blood chemistry Thyroid Peroxidase Antibodies Today E03.9 - Hypothyroidism, unspecified, R79.89 - Other specified abnormal findings of blood chemistry Magnesium Today E03.9 - Hypothyroidism, unspecified, R79.89 - Other specified abnormal findings of blood chemistry Vitamin B12 and Folate Today E03.9 - Hypothyroidism, unspecified, R79.89 - Other specified abnormal findings of blood chemistry Referrals Endocrinology Referral R79.89 - Other specified abnormal findings of blood chemistry Patient Instructions: Sleep Hygiene provided: set a scheduled bedtime and wake time to help regulate the circadian rhythm and balance the release of pituitary hormones. Sleep in a dark room, temperatures below 68 degrees, and no devices n bed. Limit caffeinated products 6 hours prior to bed, and limit fluids 2-4 hours prior to bed. Gentle night yoga, diffusing essential oils, and playing soft music can be relaxing. Coding Level of Care Code New Pt Level 4 (71672) Complex EM visit Add On G2211 Diagnoses Excessive daytime sleepiness G47.19 Snoring R06.83 Elevated TSH R79.89 Hypothyroidism, unspecified type E03.9 Hypothyroidism type: unspecified Time Spent (min) 30 Comment TSH is elevated, sleep evaluation, hypothyroidism or hashimotos Sleep Questionnaire Difficulty falling asleep: No Difficulty staying asleep?: No Number of arousals: 1-2 Snoring: Yes Witnessed apneas: Yes Gasping arousals: Yes Nocturia: No GERD: No Vivid dreams: Yes Acting out dreams: No Abnormal behavior in sleep: No Abnormal movements in sleep: No Morning headaches: No Excessive daytime sleepiness: No Daytime naps: No Restless legs: Yes Hallucinations: No Sleep paralysis: No Drop attacks: No Sleep Study: Yes (> 10 years ago) CPAP: No
== END 2024-12-06 10:04 | disposition home or self-care (01) ==
LOC: HO.HSMS 08:52
PROVIDERS: PCP Internal Medicine; Visit Provider Physician Assistant Medical
DX: G47.19 Other hypersomnia (principal); R06.83 Snoring; R79.89 Other specified abnormal findings of blood chemistry; E03.9 Hypothyroidism, unspecified
CPT/HCPCS: 99204; G2211

== ENCOUNTER 2024-12-07 09:04 | Outpatient (REF) | payer OTHER, SELFPAY ==
[2024-12-07 10:35] LABS: Iron 65 mcg/dL (45-160); Magnesium 2.5 mg/dL (1.6-2.6); Percent Iron Saturation 25 % (15-50); Total Iron Binding Capacity 257 mcg/dL (228-428); Unsaturated Iron Binding 192 ug/dL
[2024-12-07 11:02] LABS: Ferritin 102 ng/mL (20-250)
[2024-12-07 11:08] LABS: Folate 13.8 ng/mL (> or = 4.0); Vitamin B12 523 pg/mL (200-900)
[2024-12-07 12:01] LABS: Free T4 (Free Thyroxine) 0.86 ng/dL (0.71-1.85)
[2024-12-08 18:09] LABS: Thyroglobulin Antibodies 1 IU/mL (< or = 1)
[2024-12-11 12:23] LABS: Triiodothyronine T3 Reverse 12 ng/dL (8-25)
== END 2024-12-07 09:05 | disposition home or self-care (01) ==
LOC: HO.LAB 09:04
PROVIDERS: Visit Provider Physician Assistant Medical
DX: G47.19 Other hypersomnia (principal); R79.89 Other specified abnormal findings of blood chemistry; E03.9 Hypothyroidism, unspecified; R53.83 Other fatigue; G47.9 Sleep disorder, unspecified
CPT/HCPCS: 36415; 82306; 82607; 82728; 82746; 83090; 83540; 83735; 83921; 84439; 84443; 84481; 84482; 86376; 86800

== ENCOUNTER → 2024-12-20 09:11 | Outpatient (REF) | payer OTHER, SELFPAY ==
--- OUTSIDE RECORDS SUMMARY | 2024-12-20 09:43 | XMS_ITS | Clinical Summary ---
Author Organization [facility] Address [address] [place], [place] [id number] Phone Care Team Providers Care Ham Trimmer Name Role Phone Markus Love MD Primary Care Provider Social History Tobacco Use Types Packs/Day Years Used Date Smoking Tobacco: Never Assessed Education Answer Date Recorded Are you interested in more education? Not on sumi e 09/26/2022 Are you concerned about learning? Not on file 09/26/2022 No 09/26/2022 No 09/26/2022 Digital Access Answer Date Recorded No 10/28/2022 No 10/28/2022 Reliable internet access at home? Not on file 10/28/2022 Device with a working camera? Not on file Sex and Gender Information Value Date Recorded Sex Assigned at Not on file Legal Sex Male 8:23 AM EST Gender Identity Not on file Sexual Orientation Not on file Plan of Treatment Not on file Medical Devices Not on file Insurance [facility] [address] [place], [place] [address]O [facility] [address] [place] [address] [place], [place] [address] [place], [place] [address]O [facility] Care Teams Ham Trimmer Relationship Specialty Start Date End Date Markus Love MD [address] [place] [id number] PCP - General Internal Medicine 04/18/20 Additional Source Comments The information contained in this document represents components of the legal health record. It is not the complete legal health record.[facility]
== END ==
LOC: HO.SL 09:11
PROVIDERS: PCP Internal Medicine; Visit Provider Internal Medicine
DX: R06.81 Apnea, not elsewhere classified (principal); R06.83 Snoring
CPT/HCPCS: 95806

== ENCOUNTER → 2024-12-20 09:24 | Outpatient (BNV) | payer OTHER, SELFPAY | PROVIDERS: PCP Internal Medicine; Visit Provider Internal Medicine | DX: R06.83 Snoring (principal) | CPT/HCPCS: 95806 ==

== ENCOUNTER 2024-12-26 13:59 | Outpatient (AMB) | payer OTHER, SELFPAY ==
--- NOTE | 2024-12-26 14:03 | MHC.PC.OV ---
Vital Signs 12/26/24 14:04 Height 6 ft 4 in Weight 225 lb BMI 27.4 BP 140/80 H Pulse 59 Pulse Source Pulse Oximeter Temp 97.5 F Temp Source Temporal Artery Scan Pulse Oximetry (%) 99 Intake Visit Reasons: Discuss Lab Results/ Thyroid Corner Trimmer Operator Required: No Accompanied by: Self / Same As Patient Allergies No Known Allergies Allergy (Verified 12/26/24 14:03) Tobacco use date assessed: 10/14/24 Dental Screening Dental Screen Date: 10/14/24 PFSH Medical History Elevated cholesterol Anxiety Surgical History Hx of colonoscopy (~04/14/22) Hx of adenoidectomy Social History Housing: House Patient Tobacco Use Status: Never used Tobacco e-Cigarette/Vaping Use: Never Used Second Hand Smoke Exposure: No service: No Current occupational status: employed 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 Current occupational exposures/hazards: No Cognitive needs: No Hearing needs: No Vision needs: Yes Physical exam (Primary Care) Vital Signs: Last Vital Signs Temp 97.5 F 12/26/24 14:04 Pulse 59 12/26/24 14:04 BP 140/80 H 12/26/24 14:04 Pulse Ox 99 12/26/24 14:04 BMI result Body Mass Index 27.4 Tobacco/Smoking Status: Tobacco use Status Tobacco use date assessed 10/14/24 12/26/24 14:07 Patient Tobacco Use Status Never used Tobacco 12/26/24 14:07 e-Cigarette/Vaping Use Never Used 12/26/24 14:07 Coding Level of Care Code Est Pt Level 4 (08032) Complex EM visit Add On G2211 Diagnoses Hypothyroidism, unspecified type E03.9 Hypothyroidism type: unspecified Assessment & Plan Assessment & Plan (1) Hypothyroidism: Code(s): E03.9 - Hypothyroidism, unspecified Category: Medical Qualifiers: Hypothyroidism type: unspecified Qualified Code(s): E03.9 - Hypothyroidism, unspecified Plan: Synthroid has been started. Simvastain dosage has been increased Plan History of Present Illness - The patient is a 54-year-old male presenting for evaluation of blood work results and management of suspected hypothyroidism. - Hypothyroidism: The patient reports elevated TSH levels, initially noted to be 7 and later increased to 8. - He was referred to an tube man but was advised to start Synthroid instead. - The patient reports symptoms of weight gain despite regular exercise, attributing it to potential thyroid dysfunction. - Hyperlipidemia: The patient has been on simvastatin 10 mg for several years, prescribed by a previous physician. - Anxiety: The patient has a history of anxiety, managed with sertraline, which was increased recently. - Obstructive Sleep Apnea (suspected): The patient underwent a sleep study due to snoring and awaits results. 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 - Exercise: Engages in regular physical activity, working out five to six days a week. Review of Systems - Endocrine: Reports weight gain despite regular exercise. - Respiratory: Reports snoring at night. Physical Exam General: Cooperative and healthy appearing Nutritional Appearance: Well nourished Orientation/consciousness: Patient oriented x3 Limitations: No limitations Head: Normal to inspection General: Appearance normal, both eyes and all related structures Neck: Normal visual inspection Chest: Normal palpation of entire chest wall Respiratory: N ormal respiratory effort Neurology: Patient oriented x3, no abnormalities noted during examination. Results - Labs: TSH levels elevated, initially 7, later increased to 8. - Tests: Sleep study completed, awaiting results. Plan 1. Hypothyroidism - Initiate Synthroid 50 mcg daily. - Repeat TSH levels in six weeks to assess response to therapy. 2. Hyperlipidemia - Increase simvastatin dosage to 20 mg daily. 3. Anxiety - Continue current sertraline regimen. 4. Obstructive Sleep Apnea (Suspected) - Await results of the sleep study to confirm diagnosis and guide further management. Discussion Notes The patient was informed about the elevated TSH levels indicating hypothyroidism and the need to start Synthroid 50 mcg daily. It was discussed that the TSH levels should be rechecked in six weeks to evaluate the effectiveness of the treatment. The patient was advised to increase the simvastatin dosage to 20 mg daily for hyperlipidemia management. The continuation of sertraline for anxiety was recommended. The patient was informed that the sleep study results are pending, and further management will be based on the findings. Follow-up was advised in two months for repeat blood work. Patient Instructions - Start taking Synthroid 50 mcg daily. - Increase simvastatin to 20 mg daily by taking two 10 mg tablets. - Continue taking sertraline as prescribed. - Schedule blood work in two months to recheck TSH levels. - Await results of the sleep study and follow up as advised. Orders: Orders Thyroid Stimulating Hormone 02/27/25 E03.9 - Hypothyroidism, unspecified Medications: New levothyroxine (Synthroid) 50 mcg PO DAILY 60 tabs 1RF simvastatin 20 mg PO BEDTIME 90 tabs 1RF
[2024-12-26 14:04] VITALS: BP 140/80; PULSE 59; TEMP 36.4; O2SAT 99; BMI 27.4
--- OUTSIDE RECORDS SUMMARY | 2024-12-26 14:43 | XMS_ITS | Clinical Summary ---
Author Organization [facility] Address [address] [place], [place] [phone] Phone Care Team Providers Care Hot Repairman Name Role Phone Markus Love MD Primary [...] file Medical Devices Not on file Insurance [facility] [address] [place] [id number] [facility] [address] [place] [address] [place], [place] [address] [place], [place] [address]O [facility] Care Teams Hot Repairman Relationship Specialty Start Date End Date Markus Love MD [address] [place] [id number] PCP - General Internal Medicine 04/18/20 Additional Source Comments The information contained in this document represents components of the legal health record. It is not the complete legal health record.[facility]
== END 2024-12-26 15:24 | disposition home or self-care (01) ==
LOC: HO.HMCHD 14:00
PROVIDERS: PCP Internal Medicine; Visit Provider Internal Medicine
DX: E03.9 Hypothyroidism, unspecified (principal)

== ENCOUNTER 2025-02-27 11:39 | Outpatient (REF) | payer OTHER, SELFPAY ==
[2025-02-27 13:21] LABS: Thyroid Stimulating Hormone 3.77 uIU/mL (0.32-4.0)
== END 2025-02-27 11:40 | disposition home or self-care (01) ==
LOC: HO.LAB 11:39
PROVIDERS: PCP Internal Medicine; Visit Provider Internal Medicine
DX: E03.9 Hypothyroidism, unspecified (principal)
CPT/HCPCS: 36415; 84443

== ENCOUNTER 2025-03-08 08:51 | Outpatient (AMB) | payer OTHER, SELFPAY ==
--- NOTE | 2025-03-08 08:52 | A.OFFVIS_ITS ---
Vital Signs 03/08/25 08:53 Height 6 ft 4 in Weight 221 lb 4 oz BMI 26.9 BP 128/74 Blood Pressure Location Lt brachial Position Sitting Pulse 69 Pulse Source Pulse Oximeter Pulse Oximetry (%) 99 Oxygen Delivery Method Room Air Intake Visit Reasons: 3mnth follow up Intake Note: Patient presents follow up LUCILLE. Labs/HST in chart(AHI-4.5, RASHIDA-84%) Patient CX Endo. Allergies No Known Allergies Allergy (Verified 03/08/25 08:55) HPI Comments Details: 54 year old male presents for a review of his HST. 11/2024 HST c/w AHI of 4.5 and OAI is 2.5, he has mild lucille and oxygen desaturation to 85%. FH + dad has Parkinsons, mom 78 breast cancer in remission. His complaints of him gasping and choking at night, we discussed airway obstruction, and oxygen desaturation based on his mallampti score of 4. He recently started synthroid 50mcg as he felt chronically fatigued, had brain fog and was slow to get started in the morning. His weight fluctuates and he notices he gains weight easily. His memory is generally good, though more forgetful recently. He denies bruxism. He denies morning headaches, and GERD.He denies parasomnias. He has RLS, with an uncomfortable, jumpy sensation of the feet bilaterally which his notices the twitching mainly at night time. [place] - RLS His mood is irritable, he works with [employer], this can be tasking and takes a toll on his own mental health some days he gets very overwhelmed. He is on 100mg sertraline and this helps. 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 Current occupational exposures/hazards: No Cognitive needs: No Hearing needs: No Vision needs: Yes Physical Exam Vital Signs: Last Vital Signs Pulse 69 03/08/25 08:53 BP 128/74 03/08/25 08:53 Pulse Ox 99 03/08/25 08:53 Oxygen Delivery Method Room Air 03/08/25 08:53 BMI result Body Mass Index 26.9 Const General: cooperative, comfortable and no acute distress Orientation/consciousness: patient oriented x3 HEENT Face and sinus: Yes face symmetric Teeth and gingiva: other (Mallampti score is 3) Eyes Pupils: Equal, round and reactive pupils present Neck Neck: Yes full ROM Resp Effort & Inspection: normal respiratory effort and able to speak in complete sentences Neuro General: patient oriented x3 and moves all extremities Cranial nerves: Yes Equal, round and reactive pupils present, Yes Normal facial strength present, Yes Midline tongue present, Yes Ability to bilaterally rotate head present and Yes Ability to bilaterally elevate shoulders present Cognition (Neuro): normal cognition Gait exam (Neuro): Normal gait present Motor exam (neuro): 5/5 motor strength present throughout and Normal motor muscle tone present throughout Psych Appearance: grossly normal Affect: normal affect Thought process: Normal thought process present Thought content: Normal thought content present Results Reviewed Results Reviewed: 11/2024 HST c/w AHI of 4.5 and OAI is 2.5, he has mild lucille and oxygen desaturation to 85%. Assessment & Plan Assessment & Plan (1) Chronic fatigue: Code(s): R53.82 - Chronic fatigue, unspecified Category: Medical (2) Excessive daytime sleepiness: Comment: HST Code(s): G47.19 - Other hypersomnia Category: Medical (3) Snoring: Comment: Mouth guard Code(s): R06.83 - Snoring Category: Medical (4) Elevated TSH: Comment: Endocrine referral - hypothyroidism, hashimotos, autoimmune, medication? Bixby? Iodine deficient? Code(s): R79.89 - Other specified abnormal findings of blood chemistry Category: Medical (5) Hypothyroidism: Code(s): E03.9 - Hypothyroidism, unspecified Category: Medical Qualifiers: Hypothyroidism type: unspecified Qualified Code(s): E03.9 - Hypothyroidism, unspecified Plan HST reviewed with pt. mild lucille will start cpap therapy and monitor for compliance, pt ed re: compliance of >4 hours daily at night. Labs to r/o deficiencies f/u in 3 months Orders: Orders Vitamin D 25-OH Total Today R53.82 - Chronic fatigue, unspecified Ferritin Today R53.82 - Chronic fatigue, unspecified Magnesium Today R53.82 - Chronic fatigue, unspecified Vitamin B12 and Folate Today R53.82 - Chronic fatigue, unspecified Methylmalonic Acid Today G47.9 - Sleep disorder, unspecified, R53.82 - Chronic fatigue, unspecified, R53.83 - Other fatigue Homocysteine Today G47.9 - Sleep disorder, unspecified, R53.82 - Chronic fatigue, unspecified, R53.83 - Other fatigue IRON PROFILE Today G47.9 - Sleep disorder, unspecified, R53.82 - Chronic fatigue, unspecified, R53.83 - Other fatigue Patient Instructions: Sleep Hygiene provided: set a scheduled bedtime and wake time to help regulate the circadian rhythm and balance the release of pituitary hormones. Sleep in a dark room, temperatures below 68 degrees, and no devices n bed. Limit caffeinated products 6 hours prior to bed, and limit fluids 2-4 hours prior to bed. Gentle night yoga, diffusing essential oils, and playing soft music can be relaxing. Coding Level of Care Code Est Pt Level 4 (86338) Diagnoses Chronic fatigue R53.82 Excessive daytime sleepiness G47.19 Snoring R06.83 Elevated TSH R79.89 Hypothyroidism, unspecified type E03.9 Hypothyroidism type: unspecified
[2025-03-08 08:53] VITALS: BP 128/74; PULSE 69; O2SAT 99; BMI 26.9
== END 2025-03-08 09:20 | disposition home or self-care (01) ==
LOC: HO.HSMC 08:51
PROVIDERS: PCP Internal Medicine; Visit Provider Physician Assistant Medical
DX: R53.82 Chronic fatigue, unspecified (principal); G47.19 Other hypersomnia; R06.83 Snoring; R79.89 Other specified abnormal findings of blood chemistry; E03.9 Hypothyroidism, unspecified
CPT/HCPCS: 99214

== ENCOUNTER 2025-03-17 13:08 | Outpatient (REF) | payer OTHER, SELFPAY ==
--- OUTSIDE RECORDS SUMMARY | 2025-03-17 15:42 | XMS_ITS | Clinical Summary ---
Author Organization [facility] Address [address] [place], [place] [id number] Phone Care Team Providers Care Stone Breaker Name Role Phone Markus Love MD Primary [...] file Medical Devices Not on file Insurance [facility] [place] [address] [place] [address] [facility] [place] [address] [place] [address] [place] [address] [place], [place] [address] [facility] HMO Care Teams Stone Breaker Relationship Specialty Start Date End Date Markus Love MD [address] [place] [id number] PCP - General Internal Medicine 04/18/20 Additional Source Comments The information contained in this document represents components of the legal health record. It is not the complete legal health record.[facility]
[2025-03-17 16:08] LABS: Iron 57 mcg/dL (45-160); Magnesium 2.2 mg/dL (1.6-2.6); Percent Iron Saturation 25 % (15-50); Total Iron Binding Capacity 231 mcg/dL (228-428); Unsaturated Iron Binding 174 ug/dL
[2025-03-17 16:33] LABS: Folate 11.8 ng/mL (> or = 4.0); Vitamin B12 453 pg/mL (200-900)
[2025-03-17 16:39] LABS: Ferritin 117 ng/mL (20-250)
== END 2025-03-17 13:09 | disposition home or self-care (01) ==
LOC: HO.LAB 13:08
PROVIDERS: PCP Internal Medicine; Visit Provider Physician Assistant Medical
DX: R53.82 Chronic fatigue, unspecified (principal); G47.9 Sleep disorder, unspecified
CPT/HCPCS: 36415; 82306; 82607; 82728; 82746; 83090; 83540; 83735; 83921